=== PATIENT | male | born 1985 | race Caucasian/White ===

== ENCOUNTER 2016-10-15 13:55 | Emergency (ER) | payer SELFPAY ==
[~2016-10-15] VITALS: Ht 172.7 cm; Wt 79.4 kg
--- NOTE | 2016-10-15 13:55 | NUR ---
Patient was BIBA and taken to bed 03 via gurney per EMS. [facility] at bedside.
[2016-10-15 14:03] VITALS: BP 118/77
--- NOTE | 2016-10-15 14:05 | NUR ---
31 /M BIBA FOUND WALKING DOWN THE STREET YELLING AT TRAFFIC. MULTIPLE COMPLAINTS AT SCENE. C/O OF HEADACHE AND ANXIETY. PT HAS WOUND REPAIR LIGAMENT UNDER R ARMPIT; DRY & INTACT. AAOX4 WITH EVEN AND STEADY GAIT; LUNGS CLEAR BL; HR HYPERTACHYCARDIA; PT DENIES ANY FEVER, CP, SOB, OR COUGH AT THIS TIME; PATIENT STATES PAIN OF 3/10 AT THIS TIME; PATIENT POSITIONED FOR COMFORT; HOB ELEVATED; BEDRAILS UP X2; BED DOWN. ER MD MADE AWARE OF PT STATUS.
--- NOTE | 2016-10-15 14:44 | NUR ---
Dr. Macario evaluating patient at bedside.
[2016-10-15] MEDS ORDERED: NACL 0.9% 1,000 ML IV ONE (14:55)
[2016-10-15] MEDS ORDERED: KETOROLAC 30 MG/ML VIAL IVP ONE (14:55)
--- NOTE | 2016-10-15 15:10 | NUR ---
LAB at bedside.
[2016-10-15] MEDS ORDERED: LORazepam 1 MG TAB PO ONE (15:50)
[2016-10-15 19:13] VITALS: BP 128/88
--- NOTE | 2016-10-15 19:13 | NUR ---
Patient discharged with v/s stable. Written and verbal after care instructions given and explained. Patient verbalized understanding. Ambulatory with steady gait. All questions addressed prior to discharge. Advised to follow up with PMD.
== END 2016-10-15 19:13 | disposition home or self-care (01) ==
LOC: MED 13:55
DX: F12.10 Cannabis abuse, uncomplicated (principal); F15.10 Other stimulant abuse, uncomplicated; M25.461 Effusion, right knee
CPT/HCPCS: 36415; 80053; 80305; 81002; 85025; 93005; 96361; 96374; 99285; J1885; J7030

== ENCOUNTER 2016-10-16 12:25 | Emergency (ER) | payer SELFPAY ==
[~2016-10-16] VITALS: Ht 175.3 cm; Wt 79.4 kg
--- NOTE | 2016-10-16 12:25 | NUR ---
Patient SHAY CAMPBELL, triaged by RN. Waiting for available bed. Addendum: 10/16/16 at 1636 by [employer] Amendment undone in ED - 10/16/16 at 1637 by [facility] PT STATED "I DIDN'T SLEEP LAST NIGHT.
[2016-10-16 12:29] VITALS: BP 124/84
[2016-10-16] MEDS ORDERED: KETOROLAC 30 MG/ML VIAL IM ONE (12:50)
[2016-10-16] MEDS ORDERED: HALOPERIDOL IM 5 MG/ML VIAL IM ONE (12:50)
[2016-10-16] MEDS ORDERED: diphenhydrAMINE 50 MG/ML VIAL IM ONE (12:50)
--- NOTE | 2016-10-16 12:53 | NUR ---
Patient transferred to bed 8 for further care. RN evaluating patient at bedside.
[2016-10-16] MEDS ORDERED: NACL 0.9% 1,000 ML IV ONE ×2 (12:55→15:10)
--- NOTE | 2016-10-16 13:00 | NUR ---
Note undone in EDM - 10/16/16 at 1348 by [facility] PT BIBA AFTER TRIP AND FALL ON STREET AND BUMPING BACK OF HEAD. PT DENIES ANY LOC. HX METHAMPHETAMINE ABUSE. PT DENIES N/V/D; SURGERY WOUND R UNDER ARM PIT ;SKIN INTACT NOTED AT THIS TIME. PT FEELS AGIATED BUT COOPERARTED WITH NURSING CARE. LUNGS CLEAR BL; HR EVEN AND REGULAR; PT DENIES ANY FEVER, CP, SOB, OR COUGH AT THIS TIME; PATIENT STATES PAIN OF 10/10 AT THIS TIME; VSS; PATIENT POSITIONED FOR COMFORT; HOB ELEVATED; BEDRAILS UP X2; BED DOWN. ER MD MADE AWARE OF PT STATUS.
--- NOTE | 2016-10-16 13:00 | NUR ---
PT BIBA AFTER TRIP AND FALL ON STREET AND BUMPING BACK OF HEAD. PT DENIES ANY LOC. HX METHAMPHETAMINE ABUSE. PT DENIES N/V/D; SURGERY WOUND R UNDER ARM PIT ;SKIN INTACT NOTED AT THIS TIME. PT FEELS AGITATED BUT COOPERARTED WITH NURSING CARE. LUNGS CLEAR BL; HR EVEN AND REGULAR; PT DENIES ANY FEVER, CP, SOB, OR COUGH AT THIS TIME; PATIENT STATES PAIN OF 10/10 AT THIS TIME; VSS; PATIENT POSITIONED FOR COMFORT; HOB ELEVATED; BEDRAILS UP X2; BED DOWN. ER MD MADE AWARE OF PT STATUS.
--- NOTE | 2016-10-16 13:30 | NUR ---
Patient appears to be resting comfortably in bed. Vital Signs within normal limits. Respirations even and unlabored.
--- NOTE | 2016-10-16 13:48 | NUR ---
EKG AT BEDSIDE
--- NOTE | 2016-10-16 14:02 | NUR ---
Patient returned from CT scan. RN re-evaluating patient at bedside.
--- NOTE | 2016-10-16 16:20 | NUR ---
PT STATED "I DIDN'T SLEEP LAST NIGHT.
--- NOTE | 2016-10-16 16:20 | NUR ---
PT WOKE UP & WALKED TO REST ROOM. AND AFTER THAT ATE SNACKS .Patient appears to be resting comfortably in bed. Vital Signs within normal limits. Respirations even and unlabored.WILL CONTINUE TO MONITOR .
--- NOTE | 2016-10-16 16:20 | NUR ---
Kurt lugo in [facility] - 10/16/16 at 1633 by [facility]1 PT WOKE UP & WALKED TO REST ROOM.
--- NOTE | 2016-10-16 18:46 | NUR ---
Dr. Macario re-evaluating patient at bedside.
--- NOTE | 2016-10-16 19:16 | NUR ---
Pt report given to JOSE A LAMAR. Transfer of care at this time.
--- NOTE | 2016-10-16 21:20 | NUR ---
Patient discharged with v/s stable BY ERMD. Written and verbal after care instructions given and explained. Patient verbalized understanding. Ambulatory with steady gait. All questions addressed prior to discharge. Advised to follow up with PMD.
[2016-10-16 21:35] VITALS: BP 132/84
== END 2016-10-16 21:20 | disposition home or self-care (01) ==
LOC: MED 12:25
DX: F23 Brief psychotic disorder (principal); F15.10 Other stimulant abuse, uncomplicated
CPT/HCPCS: 70450; 93005; 96360; 96361; 96372; 99284; J1200; J1630; J1885; J7030